=== PATIENT | male | born 1950 | race Hispanic/Latino ===

== ENCOUNTER 2017-05-21 08:47 | Day surgery (SDC) | payer MEDICARE, OTHER ==
[~2017-05-21 08:47] MED LIST: ANCEF/STERILE WATER 2 GM/20 ML 2 GM/20 ML SYRINGE IV NR; NACL 0.9% 1000 ML 1,000 ML IV SCH
[2017-05-21 09:43] LABS: Hematocrit 34.9 % (35.5-45.6); Hemoglobin 11.3 gm/dl (11.8-15.2); Mean Corpuscular HGB Conc 32 % (32-34); Mean Corpuscular Hemoglobin 30 pg (28-32); Mean Corpuscular Volume 93 fl (84-94); Platelet Count 181 K/mm3 (140-440); Red Blood Count 3.77 M/mm3 (3.65-5.03); Red Cell Distribution Width 18.4 % (13.2-15.2)
[2017-05-21 09:52] LABS: Calcium 8.4 mg/dL (8.4-10.2)
--- NOTE | 2017-05-21 10:07 | Anesthesia Consultation ---
Anesthesia Consult and Med Hx Date of service: 05/21/17 - Airway Anesthetic Teeth Evaluation: Poor ROM Head & Neck: Adequate Mental/Hyoid Distance: Adequate Mallampati Class: Class III Intubation Access Assessment: Probably Good - Pulmonary Exam CTA: Yes - Cardiac Exam Cardiac Exam: RRR - Pre-Operative Health Status ASA Pre-Surgery Classification: ASA4 Proposed Anesthetic Plan: General - Pulmonary Hx Asthma: No Hx Pneumonia: No - Cardiovascular System Hx Hypertension: Yes Hx Peripheral Vascular Disease: Yes - Central Nervous System Hx Psychiatric Problems: No - Endocrine Hx Renal Disease: Yes Hx End Stage Renal Disease: Yes (on HD T/T/S. 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 [employer] consent obtained
[2017-05-21] MEDS ORDERED: SUBLIMAZE IV PRN (10:09)
--- NOTE | 2017-05-21 10:09 | Anesthesia Day of Surgery ---
Anesthesia Day of Surgery - Day of Surgery Patient Examined: Yes Patient H&P Reviewed: Yes Patient is NPO: Yes
[2017-05-21] MEDS ORDERED: MARCAINE 0.25% INFILTRATI ONE (11:56)
[2017-05-21] MEDS ORDERED: HEPARIN 10,000 UNITS/10 ML ONE (11:56)
[2017-05-21] MEDS ORDERED: NACL 0.9% 500 ML 500 ML ONE (11:57)
[2017-05-21] MEDS ORDERED: XYLOCAINE CARDIAC IV ONE (12:06)
[2017-05-21] MEDS ORDERED: DIPRIVAN 10 MG/ML IV ONE (12:06)
[2017-05-21] MEDS ORDERED: NACL 0.9% IR ONE (12:09)
[2017-05-21] MEDS ORDERED: MARCAINE 0.5% INFILTRATI ONE ×2 (12:09)
[2017-05-21] MEDS ORDERED: HEPARIN 10,000 UNITS/10 ML 2,000 UNIT in NACL 0.9% 500 ML 500 ML IR ONE (12:09)
[2017-05-21] MEDS ORDERED: ZOFRAN ONE (12:10)
[2017-05-21] MEDS ORDERED: DECADRON ONE (12:10)
[2017-05-21] MEDS ORDERED: SUBLIMAZE ONE (12:10)
[2017-05-21] MEDS ORDERED: ePHEDrine SULFATE ONE (12:35)
--- NOTE | 2017-05-21 16:22 | Operative Report ---
Operative Report Operative Report: Operative note: Date: 05/21/17 Preoperative diagnosis: Endstage renal disease on hemodialysis Postoperative diagnosis: Same. Operation: Left arm AV graft creation Surgeon: Lilly Davenport. Asst.: Anesthesia: Gen. EBL: 50 mL Findings: Patent brachial artery. Smaller size axillary vein. Indications: 67-year-old gentleman with end-stage renal disease now via left- sided PermCath. Patient had failed left brachiocephalic AV fistula. Now middle or [employer] on PermCath, which is unsafe with infection risk. Patient and were explained risks benefits and alternatives of proceeding with AV graft. They agreed and signed consent. Operative details: He was brought to the operating room and placed in supine position with left arm on an arm table. Ultrasound was performed locating brachial artery before takeoff of previous AV fistula as well as axillary vein. Those locations were marked on the skin. Left arm was then prepped and draped in sterile fashion. Timeout was performed and all team members in agreement. First incision was created with 15 blade over medial side of elbow crease in vertical fashion and carried down with electrocautery. Brachial vein was located and taken vessel loop, retracted. Brachial artery was dissected and taken distally and proximally on vessel loops. Next, incision was created with 15 blade over medial upper part of arm in the vertical fashion and carried down with electrocautery. Upon dissection initially venous branch was small, then dissection was carried proximal toward the axilla. With further dissection axillary vein was identified medial to brachial artery. It was taken on vessel loop. 4-7 millimeter AcuSeal graft was tunneled with Michaela Wick tunneler in a curvilinear fashion. At this moment patient was given 3000 units of heparin and allowed to circulate for 3 minutes. Proximal and distal controls were gained. 4 mm portion was beveled at the arterial side. Arteriotomy was created with 11 blade and extended with Conner scissors. Anastomosis was created with 6-0 Prolene in circumferential fashion. Graft was open, clamped at the arterial side and flushed with heparinized saline. The next step, graft was transected beveling at the planned venous anastomosis. The vein was clamped with Satinsky clamp gaining simultaneously distal and proximal controls. Venotomy was created with 11 blade and carried with Conner scissors. Circumferential anastomosis was created with 6-0 Prolene and flushed before completion. 2 repair stitches were placed. Both anastomosis were checked for hemostasis. Graft area was palpated and good thrill appreciated. Wounds were irrigated and checked for hemostasis. Incisions were closed in layers with 3-0 Vicryl interrupted dermal and 4-0 Monocryl running subcuticular. Dermabond was applied. Good radial pulse was palpated at the end of procedure as well as graft thrill. All needles and sponge counts were correct. Patient tolerated the procedure well and was transferred to PACU in stable condition.
--- NOTE | 2017-05-21 16:26 | Short Stay Summary ---
Short Stay Documentation Date of service: 05/21/17 - History H&P: obtained from office - Allergies and Medications Current Medications: Allergies No Known Allergies Allergy (Unverified 12/13/16 15:37) Questionable lidocaine Home Medications Medication Instructions Recorded Confirmed Last Taken Type Cinacalcet [Sensipar] 30 mg PO QDAY 12/12/16 05/21/17 Unknown History FLUoxetine [PROzac] 10 mg PO QDAY 12/12/16 05/21/17 05/20/17 17:00 History Insulin Glargine [Lantus VIAL] 10 unit SUB-Q QHS 12/12/16 05/21/17 Unknown History Levothyroxine [Synthroid] 50 mcg PO QAM 12/12/16 05/21/17 Unknown History Mirtazapine [Remeron] 15 mg PO QHS 12/12/16 05/21/17 05/20/17 21:00 History Sevelamer Carbonate [Renvela] 800 mg PO TIDWM 12/12/16 05/21/17 Unknown History Aspirin EC [Aspirin Enteric Coated 81 mg PO QDAY #30 tablet. 12/15/1605/16/17 09:00 Rx TAB] Active Medications Fentanyl (Sublimaze) 50 mcg IV Q5MIN PRN PRN Reason: Pain , Severe (7-10) Stop: 05/21/17 23:59 Cefazolin Sodium (Ancef/Sterile Water 2 Gm/20 Ml) 2 gm in 20 mls @ 80 mls/hr IV PREOP NR PRN Reason: Protocol Stop: 05/21/17 23:59 Sodium Chloride (Nacl 0.9% 1000 Ml) 1,000 mls @ 42 mls/hr IV DIRECT CARMEN Last Admin: 05/21/17 09:40 Dose: 42 mls/hr - Brief post op/procedure progress note Date of procedure: 05/21/17 Pre-op diagnosis: end-stage renal disease via PermCath Procedure: Left brachial axillary AV graft placement Anesthesia: MARV Surgeon: ZEYAD MEDRANO Estimated blood loss: 50-100ml Condition: stable - Disposition Condition at discharge: Good Disposition: DC-01 TO HOME OR SELFCARE Short Stay Discharge Plan Wound: open to air Special Instructions: no heavy lifting Follow up with: HERNANDEZ GAMBINO MD [Primary Care Provider] - 7 Days ZEYAD MEDRANO DO [Staff Physician] - 14 Days Prescriptions: Acetaminophen/Codeine [Tylenol /Codeine # 3 tab] 1 tab PO Q4HR PRN #30 tablet PRN Reason: Pain
[2017-05-21] MEDS: APRESOLINE IV PRN ×2 (16:46→17:05)
--- NOTE | 2017-05-21 17:17 | Post Anesthesia Evaluation ---
- Post Anesthesia Evaluation Patient Participated: Yes Airway Patent: Yes Stable Respiratory Function: Yes Nausea/Vomiting: No Temp > 96.8F: Yes Pain Manageable: Yes Adequeate Hydration: Yes Anesthesia Complications: No Other Comments: Of note: the order for hydralazine indicates that SBP should be <170.
[2017-05-21] MEDS ORDERED: DILAUDID IV PRN (17:47)
[2017-05-21 19:38] VITALS: BP 154/80
== END 2017-05-21 18:45 | disposition home or self-care (01) ==
LOC: OR 08:47
PROVIDERS: ATTEND Surgery Vascular Surgery
DX: T82.898A Other specified complication of vascular prosthetic devices, implants and grafts, initial encounter (principal); I12.0 Hypertensive chronic kidney disease with stage 5 chronic kidney disease or end stage renal disease; E11.22 Type 2 diabetes mellitus with diabetic chronic kidney disease; N18.6 End stage renal disease; I73.9 Peripheral vascular disease, unspecified; E03.9 Hypothyroidism, unspecified; H54.61 Unqualified visual loss, right eye, normal vision left eye; Z85.828 Personal history of other malignant neoplasm of skin; Y83.2 Surgical operation with anastomosis, bypass or graft as the cause of abnormal reaction of the patient, or of later complication, without mention of misadventure at the time of the procedure
CPT/HCPCS: 36415; 80048; 82962; 85027; C1768; J0360; J0690; J1100; J1170; J1644; J1815; J2001; J2405; J2704; J3010; J7030; J7040